=== PATIENT | female | born 1945 | race Two or more races ===

== ENCOUNTER 2017-11-07 13:40 | Inpatient (IN) | payer MEDICARE, MEDICAID ==
[~2017-11-07] VITALS: Ht 157.5 cm; Wt 63.5 kg
[2017-11-07 13:46] VITALS: BP 136/72
[2017-11-07] MEDS ORDERED: PRILOSEC OTC20 MG ORAL (13:53)
[2017-11-07] MEDS ORDERED: HYDRALAZINE HCL10 MG ORAL (13:53)
[2017-11-07] MEDS ORDERED: ASPIR 8181 MG ORAL (13:53)
[2017-11-07] MEDS ORDERED: LEVOTHYROXINE125 MCG ORAL (13:53)
[2017-11-07] MEDS ORDERED: DICLOFENAC SODI50 MG ORAL (13:53)
[2017-11-07] MEDS ORDERED: ADALAT20 MG ORAL (13:53)
[2017-11-07] MEDS ORDERED: OXYBUTYNIN CHLOR5 M2 PO (13:53)
[2017-11-07 14:31] LABS: BASOPHILS % (AUTO) 0.8 % (0.0-2.0); EOSINOPHILS % (AUTO) 0.2 % (0.0-3.0); HEMATOCRIT 41.3 % (37.0-47.0); HEMOGLOBIN 13.8 G/DL (12.0-16.0); LYMPHOCYTES % (AUTO) 18.1 % (20.0-45.0); MEAN CORPUSCULAR VOLUME 92 FL (80-99); MONOCYTES % (AUTO) 5.4 % (1.0-10.0); NEUTROPHILS % (AUTO) 75.5 % (45.0-75.0); PLATELET COUNT 247 K/UL (150-450); RED BLOOD COUNT 4.51 M/UL (4.20-5.40); RED CELL DISTRIBUTION WIDTH 10.8 % (11.6-14.8); WHITE BLOOD COUNT 10.8 K/UL (4.8-10.8)
[2017-11-07 14:32] LABS: APPEARANCE,URINE CLEAR; BILIRUBIN, URINE NEGATIVE (NEGATIVE); COLOR,URINE PALE YELLOW; GLUCOSE, URINE (UA) NEGATIVE (NEGATIVE); KETONES,URINE NEGATIVE (NEGATIVE); LEUKOCYTE ESTERASE ,URINE 3+ (NEGATIVE); NITRITE,URINE NEGATIVE (NEGATIVE); PH,URINE 7 (4.5-8.0); PROTEIN,URINE 1+ (NEGATIVE); UROBILINOGEN,URINE NORMAL MG/DL (0.0-1.0)
[2017-11-07 14:43] LABS: ANION GAP 15 mmol/L (5-15); BLOOD UREA NITROGEN 14 mg/dL (7-18); CALCIUM 9.2 MG/DL (8.5-10.1); CARBON DIOXIDE 19 MMOL/L (21-32); CHLORIDE 102 MMOL/L (98-107); POTASSIUM 3.8 MMOL/L (3.5-5.1); SODIUM 136 MMOL/L (136-145)
[2017-11-07 14:58] LABS: ALANINE AMINOTRANSFERASE 25 U/L (12-78); ALBUMIN 4.1 G/DL (3.4-5.0); ALKALINE PHOSPHATASE 74 U/L (46-116); ASPARTATE AMINO TRANSFERASE 27 U/L (15-37); BILIRUBIN,TOTAL 0.5 MG/DL (0.2-1.0); CKMB 1.3 NG/ML (0.0-3.6); CREATINE KINASE 147 U/L (26-308)
[2017-11-07 15:34] VITALS: BP 165/69
--- NOTE | 2017-11-07 16:00 | Emergency Room Report ---
History of Present Illness General Chief Complaint: General Complaint Source: Patient Present Illness HPI Patient present with complaints of left upper chest pain and shoulder pain Ongoing for the past 2 days Denies any vomiting or diarrhea patient also reports that she is taking a lot of medications for pain and high blood pressure Denies any recent travel denies any pleurisy or shortness of breath denies any back or flank pain Denies any recent trauma pain is a sharp pain at times aching Allergies: Coded Allergies: No Known Allergies (Unverified , 11/07/17) Patient History Past Medical History: see triage record Pertinent Family History: none Reviewed Nursing Documentation: PMH: Agreed; PSxH: Agreed Nursing Documentation-PMH Hx Hypertension: Yes - high cholesterol Review of Systems All Other Systems: negative except mentioned in HPI Physical Exam Vital Signs Date Time Temp Pulse Resp B/P (MAP) Pulse Ox O2 Delivery O2 Flow Rate FiO2 11/07/17 13:36 98.3 84 18 136/72 98 Room Air 98.2 Sp02 EP Interpretation: reviewed, normal General Appearance: well appearing, no apparent distress Head: normocephalic, atraumatic Eyes: bilateral eye PERRL, bilateral eye EOMI ENT: hearing grossly normal, normal pharynx, TMs + canals normal, uvula midline Neck: full range of motion, supple, no meningismus, no bony tend Respiratory: lungs clear, normal breath sounds, no rhonchi, no respiratory distress, no retraction, no accessory muscle use Cardiovascular #1: normal peripheral pulses, regular rate, rhythm, no edema, no gallop, no JVD, no murmur Gastrointestinal: normal bowel sounds, non tender, soft, no mass, no organomegaly, non-distended, no guarding, no hernia, no pulsatile mass, no rebound Genitourinary: no CVA tenderness Musculoskeletal: other - Patient does have some discomfort at the left shoulder on flexion of the left arm, eversion of the upper arm Neurologic: oriented x3, responsive, mandarin tutor III-XII nml as tested, motor strength/ tone normal, sensory intact Psychiatric: mood/affect normal Skin: normal color, no rash, warm/dry, palpation normal Lymphatic: normal inspection, no adenopathy Medical Decision Making Diagnostic Impression: Primary Impression: ACS (acute coronary syndrome) Additional Impression: Hypertensive urgency, malignant ER Course Patient is a fairly complex patient with multiple differential to consideration including but not limited to cardiac cardiopulmonary and vascular emergencies Patient's initial EKG along with blood work are at baseline levels Patient's pain has improved somewhat however given the location of the radiation there is concern for possible ACS and patient amended for further inpatient care Labs Test 11/07/17 14:00 11/07/17 14:15 11/07/17 18:40 11/08/17 06:40 White Blood Count 10.8 K/UL (4.8-10.8) 7.4 K/UL (4.8-10.8) Red Blood Count 4.51 M/UL (4.20-5.40) 4.54 M/UL (4.20-5.40) Hemoglobin 13.8 G/DL (12.0-16.0) 14.2 G/DL (12.0-16.0) Hematocrit 41.3 % (37.0-47.0) 40.8 % (37.0-47.0) Mean Corpuscular Volume 92 FL (80-99) 90 FL (80-99) Mean Corpuscular Hemoglobin 30.5 PG (27.0-31.0) 31.3 PG (27.0-31.0) Mean Corpuscular Hemoglobin Concent 33.3 G/DL (32.0-36.0) 34.9 G/DL (32.0-36.0) Red Cell Distribution Width 10.8 % (11.6-14.8) 10.7 % (11.6-14.8) Platelet Count 247 K/UL (150-450) 241 K/UL (150-450) Mean Platelet Volume 7.1 FL (6.5-10.1) 6.7 FL (6.5-10.1) Neutrophils (%) (Auto) 75.5 % (45.0-75.0) 62.3 % (45.0-75.0) Lymphocytes (%) (Auto) 18.1 % (20.0-45.0) 29.8 % (20.0-45.0) Monocytes (%) (Auto) 5.4 % (1.0-10.0) 6.7 % (1.0-10.0) Eosinophils (%) (Auto) 0.2 % (0.0-3.0) 0.6 % (0.0-3.0) Basophils (%) (Auto) 0.8 % (0.0-2.0) 0.7 % (0.0-2.0) Sodium Level 136 MMOL/L (136-145) Potassium Level 3.8 MMOL/L (3.5-5.1) Chloride Level 102 MMOL/L (98-107) Carbon Dioxide Level 19 MMOL/L (21-32) Anion Gap 15 mmol/L (5-15) Blood Urea Nitrogen 14 mg/dL (7-18) Creatinine 1.0 MG/DL (0.55-1.30) Estimat Glomerular Filtration Rate 54.8 mL/min (>60) Glucose Level 202 MG/DL (74-106) Calcium Level 9.2 MG/DL (8.5-10.1) Total Bilirubin 0.5 MG/DL (0.2-1.0) Aspartate Amino Transf (AST/SGOT) 27 U/L (15-37) Alanine Aminotransferase (ALT/SGPT) 25 U/L (12-78) Alkaline Phosphatase 74 U/L (46-116) Total Creatine Kinase 147 U/L (26-308) Creatine Kinase MB 1.3 NG/ML (0.0-3.6) Creatine Kinase MB Relative Index 0.8 Troponin I 0.000 ng/mL (0.000-0.056) 0.010 ng/mL (0.000-0.056) 0.000 ng/mL (0.000-0.056) Total Protein 8.1 G/DL (6.4-8.2) Albumin 4.1 G/DL (3.4-5.0) Globulin 4.0 g/dL Albumin/Globulin Ratio 1.0 (1.0-2.7) Thyroid Stimulating Hormone (TSH) 1.488 uiU/mL (0.358-3.740) 1.231 uiU/mL (0.358-3.740) Free Thyroxine 1.18 NG/DL (0.76-1.46) Urine Color Pale yellow Urine Appearance Clear Urine pH 7 (4.5-8.0) Urine Specific [place] 1.010 (1.005-1.035) Urine Protein 1+ (NEGATIVE) Urine Glucose (UA) Negative (NEGATIVE) Urine Ketones Negative (NEGATIVE) Urine Occult Blood 2+ (NEGATIVE) Urine Nitrite Negative (NEGATIVE) Urine Bilirubin Negative (NEGATIVE) Urine Urobilinogen Normal MG/DL (0.0-1.0) Urine Leukocyte Esterase 3+ (NEGATIVE) Urine RBC 2-4 /HPF (0 - 2) Urine WBC 5-10 /HPF (0 - 2) Urine Squamous Epithelial Cells Few /LPF (NONE/OCC) Urine Bacteria Few /HPF (NONE) Prothrombin Time 11.0 SEC (9.30-11.50) Prothromb Time International Ratio 1.0 (0.9-1.1) Activated Partial Thromboplast Time 29 SEC (23-33) C-Reactive Protein, Quantitative < 0.4 mg/dL (0.00-0.90) Triglycerides Level 73 MG/DL (30-150) Cholesterol Level 171 MG/DL (< 200) LDL Cholesterol 104 mg/dL (<100) HDL Cholesterol 67 MG/DL (40-60) Cholesterol/HDL Ratio 2.6 (3.3-4.4) EKG Diagnostic Results Rate: normal Rhythm: NSR ST Segments: no acute changes Rhythm Strip Diag. Results EP Interpretation: yes Rate: 67 Rhythm: NSR, no PVC's, no ectopy Chest X-Ray Diagnostic Results Chest X-Ray Diagnostic Results : Chest X-Ray Ordered: Yes # of Views/Limited/Complete: 1 View Indication: Chest Pain EP Interpretation: Yes Interpretation: no consolidation, no effusion, no pneumothorax Impression: No acute disease Electronically Signed by: DO Phil Joiner Vital Signs Date Time Temp Pulse Resp B/P (MAP) Pulse Ox O2 Delivery O2 Flow Rate FiO2 11/07/17 15:34 98.2 83 17 165/69 98 Room Air 98.2 Status: improved Disposition: ADMITTED INPATIENT Condition: Serious Referrals: NON PHYSICIAN (PCP) Treasure Mcclure DO Nov 07, 2017 16:00
[2017-11-07 16:32] VITALS: BP 147/69
[2017-11-07] MEDS ORDERED: dilTIAZem HCl 25mg/5ml Inj IV PRN (18:00)
[2017-11-07] MEDS ORDERED: Miralax 17gm pkt ORAL PRN (18:00)
[2017-11-07] MEDS ORDERED: Nitroglycerin Subl 0.4mg tab SL PRN (18:00)
[2017-11-07] MEDS ORDERED: Labetalol 5mg/ml 20ml vial IV PRN (18:00)
[2017-11-07] MEDS ORDERED: Albuterol/Ipratropium 3ml neb HHN PRN (18:00)
[2017-11-07] MEDS: Heparin 5000 units/ml inj SUBQ SCH (20:52)
[2017-11-08 07:28] LABS: BASOPHILS % (AUTO) 0.7 % (0.0-2.0); EOSINOPHILS % (AUTO) 0.6 % (0.0-3.0); HEMATOCRIT 40.8 % (37.0-47.0); HEMOGLOBIN 14.2 G/DL (12.0-16.0); LYMPHOCYTES % (AUTO) 29.8 % (20.0-45.0); MEAN CORPUSCULAR VOLUME 90 FL (80-99); MONOCYTES % (AUTO) 6.7 % (1.0-10.0); NEUTROPHILS % (AUTO) 62.3 % (45.0-75.0); PLATELET COUNT 241 K/UL (150-450); RED BLOOD COUNT 4.54 M/UL (4.20-5.40); RED CELL DISTRIBUTION WIDTH 10.7 % (11.6-14.8); WHITE BLOOD COUNT 7.4 K/UL (4.8-10.8)
[2017-11-08 07:32] LABS: CHOLESTEROL 171 MG/DL (< 200); HDL CHOLESTEROL 67 MG/DL (40-60); TRIGLYCERIDES 73 MG/DL (30-150)
[2017-11-08 08:00] VITALS: BP 125/63
[2017-11-08] MEDS: Heparin 5000 units/ml inj SUBQ SCH ×2 (09:31→20:15)
[2017-11-08 12:00] VITALS: BP 150/70
--- NOTE | 2017-11-08 12:09 | Consultation ---
History of Present Illness General Date patient seen: Nov 08, 2017 Chief Complaint: General Complaint Present Illness HPI 72 year old female with hx of HTN, was brought in by paramedics because of dizziness and anxiety, Apparently she tool her morning BP meds twice and got anxious. then she had dry mouth and dizzy and called the paramedics. She is admitted to telemetry. Her major concern is her Left shoulder pain. Allergies: Coded Allergies: No Known Allergies (Unverified , 11/07/17) Medication History Scheduled Aspirin* (Aspir 81*), 81 MG ORAL DAILY, (Reported) Diclofenac Sod* (Voltaren*), 50 MG ORAL THREE TIMES A DAY, (Reported) Hydralazine Hcl* (Hydralazine Hcl*), 10 MG ORAL EVERY 8 HOURS, (Reported) Levothyroxine Sodium* (Levothyroxine Sodium*), 250 MCG ORAL DAILY, (Reported) Nifedipine (Nifedipine*), 60 MG ORAL DAILY, (Reported) Omeprazole Magnesium (Prilosec Otc), 40 MG ORAL DAILY, (Reported) Oxybutynin Chloride (Oxybutynin Chloride Er), 5 MG PO DAILY, (Reported) Patient History Healthcare decision maker Resuscitation status Full Code Advanced Directive on File Past Medical/Surgical History Past Medical/Surgical History: (1) Hypertension Review of Systems All Other Systems: negative except mentioned in HPI Physical Exam General Appearance: WD/WN, no apparent distress Lines, tubes and drains: peripheral, central line, endotracheal tube HEENT: normocephalic, atraumatic Neck: non-tender, supple Respiratory/Chest: chest wall non-tender, normal breath sounds Cardiovascular/Chest: normal peripheral pulses, normal rate Last 24 Hour Vital Signs Date Time Temp Pulse Resp B/P (MAP) Pulse Ox O2 Delivery O2 Flow Rate FiO2 11/08/17 09:00 Room Air 11/08/17 08:00 68 11/08/17 08:00 97.8 70 18 125/63 (83) 96 97.8 11/08/17 04:00 59 11/07/17 21:00 Room Air 11/07/17 20:00 68 11/07/17 16:50 Room Air 11/07/17 16:45 98.2 92 22 147/69 98 Room Air 98.2 11/07/17 16:32 98.2 92 22 147/69 98 Room Air 98.2 11/07/17 15:34 98.2 83 17 165/69 98 Room Air 98.2 11/07/17 13:46 98.2 100 18 136/72 98 Room Air 98.2 11/07/17 13:36 98.3 84 18 136/72 98 Room Air 98.2 Intake and Output 11/07/17 11/08/17 19:00 07:00 Intake Total 250 ml Output Total 0 ml Balance 0 ml 250 ml Intake Oral 250 ml Output Urine Total 0 ml # Voids 2 3 Laboratory Tests Test 11/07/17 14:00 11/07/17 14:15 11/07/17 18:40 11/08/17 06:40 White Blood Count 10.8 K/UL (4.8-10.8) 7.4 K/UL (4.8-10.8) Red Blood Count 4.51 M/UL (4.20-5.40) 4.54 M/UL (4.20-5.40) Hemoglobin 13.8 G/DL (12.0-16.0) 14.2 G/DL (12.0-16.0) Hematocrit 41.3 % (37.0-47.0) 40.8 % (37.0-47.0) Mean Corpuscular Volume 92 FL (80-99) 90 FL (80-99) Mean Corpuscular Hemoglobin 30.5 PG (27.0-31.0) 31.3 PG (27.0-31.0) H Mean Corpuscular Hemoglobin Concent 33.3 G/DL (32.0-36.0) 34.9 G/DL (32.0-36.0) Red Cell Distribution Width 10.8 % (11.6-14.8) L 10.7 % (11.6-14.8) L Platelet Count 247 K/UL (150-450) 241 K/UL (150-450) Mean Platelet Volume 7.1 FL (6.5-10.1) 6.7 FL (6.5-10.1) Neutrophils (%) (Auto) 75.5 % (45.0-75.0) H 62.3 % (45.0-75.0) Lymphocytes (%) (Auto) 18.1 % (20.0-45.0) L 29.8 % (20.0-45.0) Monocytes (%) (Auto) 5.4 % (1.0-10.0) 6.7 % (1.0-10.0) Eosinophils (%) (Auto) 0.2 % (0.0-3.0) 0.6 % (0.0-3.0) Basophils (%) (Auto) 0.8 % (0.0-2.0) 0.7 % (0.0-2.0) Sodium Level 136 MMOL/L (136-145) Potassium Level 3.8 MMOL/L (3.5-5.1) Chloride Level 102 MMOL/L (98-107) Carbon Dioxide Level 19 MMOL/L (21-32) L Anion Gap 15 mmol/L (5-15) Blood Urea Nitrogen 14 mg/dL (7-18) Creatinine 1.0 MG/DL (0.55-1.30) Estimat Glomerular Filtration Rate 54.8 mL/min (>60) Glucose Level 202 MG/DL (74-106) H Calcium Level 9.2 MG/DL (8.5-10.1) Total Bilirubin 0.5 MG/DL (0.2-1.0) Aspartate Amino Transf (AST/SGOT) 27 U/L (15-37) Alanine Aminotransferase (ALT/SGPT) 25 U/L (12-78) Alkaline Phosphatase 74 U/L (46-116) Total Creatine Kinase 147 U/L (26-308) Creatine Kinase MB 1.3 NG/ML (0.0-3.6) Creatine Kinase MB Relative Index 0.8 Troponin I 0.000 ng/mL (0.000-0.056) 0.010 ng/mL (0.000-0.056) 0.000 ng/mL (0.000-0.056) Total Protein 8.1 G/DL (6.4-8.2) Albumin 4.1 G/DL (3.4-5.0) Globulin 4.0 g/dL Albumin/Globulin Ratio 1.0 (1.0-2.7) Thyroid Stimulating Hormone (TSH) 1.488 uiU/mL (0.358-3.740) 1.231 uiU/mL (0.358-3.740) Free Thyroxine 1.18 NG/DL (0.76-1.46) Urine Color Pale yellow Urine Appearance Clear Urine pH 7 (4.5-8.0) Urine Specific [place] 1.010 (1.005-1.035) Urine Protein 1+ (NEGATIVE) H Urine Glucose (UA) Negative (NEGATIVE) Urine Ketones Negative (NEGATIVE) Urine Occult Blood 2+ (NEGATIVE) H Urine Nitrite Negative (NEGATIVE) Urine Bilirubin Negative (NEGATIVE) Urine Urobilinogen Normal MG/DL (0.0-1.0) Urine Leukocyte Esterase 3+ (NEGATIVE) H Urine RBC 2-4 /HPF (0 - 2) H Urine WBC 5-10 /HPF (0 - 2) H Urine Squamous Epithelial Cells Few /LPF (NONE/OCC) Urine Bacteria Few /HPF (NONE) Prothrombin Time 11.0 SEC (9.30-11.50) Prothromb Time International Ratio 1.0 (0.9-1.1) Activated Partial Thromboplast Time 29 SEC (23-33) C-Reactive Protein, Quantitative < 0.4 mg/dL (0.00-0.90) Triglycerides Level 73 MG/DL (30-150) Cholesterol Level 171 MG/DL (< 200) LDL Cholesterol 104 mg/dL (<100) H HDL Cholesterol 67 MG/DL (40-60) H Cholesterol/HDL Ratio 2.6 (3.3-4.4) L Height (Feet): 5 Height (Inches): 2.00 Weight (Pounds): 140 Medications Current Medications Medications (Trade) Dose Ordered Sig/Lesly Route PRN Reason Start Time Stop Time Status Last Admin Dose Admin Acetaminophen (Tylenol) 650 mg Q4H PRN ORAL FEVER 11/07/17 18:00 12/07/17 17:59 11/08/17 09:29 Albuterol/ Ipratropium (Albuterol/ Ipratropium) 3 ml Q4H PRN HHN Shortness of Breath 11/07/17 18:00 11/12/17 17:59 Diltiazem HCl (Cardizem) 10 mg Q1H PRN IV heart rate more than 120 11/07/17 18:00 12/07/17 17:59 Enalaprilat (Vasotec) 2.5 mg Q6H PRN IV sbp more than 160 11/07/17 18:00 12/07/17 17:59 Heparin Sodium (Porcine) (Heparin 5000 units/ml) 5,000 units EVERY 12 HOURS SUBQ 11/07/17 21:00 12/07/17 20:59 11/08/17 09:31 Labetalol HCl (Normodyne) 20 mg Q1H PRN IV sbp more than 160 11/07/17 18:00 12/07/17 17:59 Nitroglycerin (Ntg) 0.4 mg Q5M PRN SL Prn Chest Pain 11/07/17 18:00 12/07/17 17:59 Ondansetron HCl (Zofran) 4 mg Q6H PRN IVP Nausea & Vomiting 11/07/17 18:00 12/07/17 17:59 Pantoprazole (Protonix) 40 mg DAILY ORAL 11/08/17 09:00 12/08/17 08:59 11/08/17 10:20 Polyethylene Glycol (Miralax) 17 gm DAILYPRN PRN ORAL Constipation 11/07/17 18:00 12/07/17 17:59 Temazepam (Restoril) 15 mg HSPRN PRN ORAL Insomnia 11/07/17 21:00 11/14/17 20:59 Assessment/Plan Problem List: (1) Dizziness ICD Codes: R42 - Dizziness and giddiness SNOMED: 731875746, 111189367 (2) Shoulder pain ICD Codes: M25.519 - Pain in unspecified shoulder SNOMED: 39165312 (3) Hypertension ICD Codes: I10 - Essential (primary) hypertension SNOMED: 49252590 (4) Noncompliance ICD Codes: Z91.19 - Patient's noncompliance with other medical treatment and regimen SNOMED: 3094722 Assessment/Plan monitor in telemetry echo ortho evaluation symptomatic evaluation doppler of carotid artery dvt prophylaxis. Dolores Monson MD Nov 08, 2017 12:09
--- NOTE | 2017-11-08 12:56 | Diagnostic Imaging Report ---
Indication: Pain Technique: XRAY Shoulder Compl L Comparison: None Findings: No evidence of acute fracture or dislocation. Imaged portions of the left lung clear. No radiopaque foreign body identified. Impression: No acute fracture or dislocation. Consider MRI of the left shoulder on a nonemergent basis as clinically indicated if there is continued shoulder pain.
--- NOTE | 2017-11-08 13:43 | Diagnostic Imaging Report ---
Indication: Chest pain Technique: XRAY Chest 1v Comparison: None Findings: Cardiac leads overlie the chest. Heart size and mediastinal contours are within normal limits given technique. There is no focal consolidation, pneumothorax or pleural effusion. Degenerative change of the spine. Osseous structures demonstrate no acute abnormality. Impression: No radiographic evidence of acute cardiopulmonary disease.
[2017-11-08 16:00] VITALS: BP_SYST 128; BP_SYST 150; BP_DIAS 61; BP_DIAS 70
[2017-11-08 20:00] VITALS: BP 170/77
--- NOTE | 2017-11-08 20:57 | Cardiology Report ---
APPROVED REPORT EXAM: Two-dimensional and M-mode echocardiogram with Doppler and color Doppler. INDICATION LV FUNCTION M-Mode DIMENSIONS IVSd1.2 (0.7-1.1cm)Left Atrium (MM)3.1 (1.6-4.0cm) LVDd5.4 (3.5-5.6cm)Aortic Root2.3 (2.0-3.7cm) PWd1.3 (0.7-1.1cm)Aortic Cusp Exc.1.7 (1.5-2.0cm) IVSs1.7 cm LVDs3.4 (2.5-4.0cm) PWs1.2 cm Technically difficult study due to poor acoustical windows. Normal left ventricular chamber size, systolic function and wall motion to extent visualized. Left ventricular ejection fraction estimated to be 55-60 %. No evidence of left ventricular hypertrophy . No evidence of pericardial effusion. All other cardiac chamber sizes are within normal limits. Focal aortic valve sclerosis with adequate cusp excursion. Thickened mitral valve leaflets with normal excursion. Mitral annulus and aortic root calcification. Pulmonic valve not well visualized. Normal tricuspid valve structure. IVC at normal size with physiologic collapse . A color flow and spectral Doppler study was performed and revealed: Mild aortic regurgitation. Trace mitral regurgitation. Mitral diastolic velocities suggest reduced left ventricular relaxation c/w mild LV diastolic dysfunction (Grade I ). Mild tricuspid regurgitation. Tricuspid systolic velocities suggests peak right ventricular systolic pressure of 34mmH. No Pulmonic regurgitation present.
[2017-11-08] MEDS: Enalaprilat 2.5mg/2ml Inj IV PRN (21:08)
--- NOTE | 2017-11-08 22:30 | History and Physical Report ---
DATE OF ADMISSION: 11/07/2017 CONSULTANTS: 1. Dr. Costa. 2. Dolores Monson M.D. 3. Parveen Galvan M.D. CHIEF COMPLAINT: Headache, hypertensive urgency, and left shoulder pain. BRIEF HISTORY: The patient is a 72-year-old female, who lives at home, presents with headache, slight weakness, also left shoulder pain, sent to [facility], diagnosed with hypertensive urgency, admitted to telemetry for further care. Currently calm in bed. No complaint. PAST MEDICAL HISTORY: Hypertension. PAST SURGICAL HISTORY: None. MEDICATIONS: Protonix, Restoril, heparin, albuterol, , MiraLAX, Zofran, Vasotec, Cardizem, and Normodyne. ALLERGIES: Denies. SOCIAL HISTORY: No smoking. No alcohol. No intravenous drug abuse. REVIEW OF SYSTEMS: No chest pain. Slight short of breath. Slight nausea. No vomiting or diarrhea. PHYSICAL EXAMINATION: GENERAL: Calm in bed, oriented x3, no acute distress. VITAL SIGNS: Temperature is 97 degrees, pulse 70, respiratory rate 16, and blood pressure now is 123/63. CARDIOVASCULAR: No murmur. LUNGS: Distant and clear. ABDOMEN: Bowel sounds positive. Nontender. Nondistended. EXTREMITIES: No cyanosis or edema. NEUROLOGIC: The patient moves all extremities, slightly weak. LABORATORY AND DIAGNOSTIC DATA: CBC is normal. BMP actually shows troponin 0.00, 0.01 and 0.00. Cholesterol, LDL 104, and HDL 67, and total is 73. INR is 1.0 and PTT is 29. Urinalysis shows 3+ leukocyte esterase. ASSESSMENT: 1. Headache. 2. Hypertensive urgency. 3. Urinary tract infection. 4. Left shoulder pain. PLAN: 1. Continue previous medications. 2. Blood pressure control. 3. Antibiotics per Infectious Disease. 4. Pain control. 5. Orthopedic and cardiac followup. 6. The patient per insurance will be transferred shortly to assigned hospital. Niranjan Jama D.O. DR: NUBIA JOB#: [id number] CC:
[2017-11-09] VITALS: BP 123/74
[2017-11-09 04:00] VITALS: BP 170/72
[2017-11-09] MEDS: Enalaprilat 2.5mg/2ml Inj IV PRN (04:38)
[2017-11-09 08:00] VITALS: BP 155/75
[2017-11-09] MEDS ORDERED: HydrALAZINE 10mg Tab ORAL SCH (09:00)
[2017-11-09] MEDS: Heparin 5000 units/ml inj SUBQ SCH (09:54)
--- NOTE | 2017-11-09 11:03 | Pulmonology Progress Note ---
Assessment/Plan Problems: (1) Dizziness (2) Shoulder pain (3) Hypertension (4) Noncompliance Assessment/Plan BP better controlled xr of left shoulder not helpful MRI of Cspine and shoulder ordered symptomatic treatment might go home after the MRI Subjective ROS Limited/Unobtainable: No Interval Events: c/o neck and left shoulder pain Allergies: Coded Allergies: No Known Allergies (Unverified , 11/07/17) Objective Last 24 Hour Vital Signs Date Time Temp Pulse Resp B/P (MAP) Pulse Ox O2 Delivery O2 Flow Rate FiO2 11/09/17 09:55 155/75 11/09/17 09:51 52 155/75 11/09/17 08:00 97.5 52 18 155/75 (101) 98 97.5 11/09/17 04:38 170/72 11/09/17 04:00 55 11/09/17 04:00 98.0 61 16 170/72 (104) 98 98.0 11/09/17 00:00 97.9 64 16 123/74 (90) 96 97.9 11/09/17 00:00 60 11/08/17 21:08 170/77 11/08/17 21:00 Room Air 11/08/17 20:00 61 11/08/17 20:00 97.9 59 19 170/77 (108) 98 97.9 11/08/17 16:00 97.9 64 18 128/61 (83) 96 97.9 11/08/17 16:00 60 11/08/17 12:00 61 11/08/17 12:00 97.9 51 18 150/70 (96) 95 97.9 Intake and Output 11/08/17 11/09/17 19:00 07:00 Intake Total 360 ml 480 ml Balance 360 ml 480 ml Intake Oral 360 ml 480 ml # Voids 3 3 General Appearance: WD/WN HEENT: normocephalic, atraumatic Respiratory/Chest: chest wall non-tender, lungs clear Breasts: no masses Cardiovascular: normal peripheral pulses, normal rate Abdomen: normal bowel sounds, soft, non tender Extremities: no clubbing Neurologic/Psychiatric: mirror installer II-XII grossly normal Current Medications Medications (Trade) Dose Ordered Sig/Lesly Route PRN Reason Start Time Stop Time Status Last Admin Dose Admin Acetaminophen (Tylenol) 650 mg Q4H PRN ORAL FEVER 11/07/17 18:00 12/07/17 17:59 11/09/17 04:43 Albuterol/ Ipratropium (Albuterol/ Ipratropium) 3 ml Q4H PRN HHN Shortness of Breath 11/07/17 18:00 11/12/17 17:59 Diltiazem HCl (Cardizem) 10 mg Q1H PRN IV heart rate more than 120 11/07/17 18:00 12/07/17 17:59 Enalaprilat (Vasotec) 2.5 mg Q6H PRN IV sbp more than 160 11/07/17 18:00 12/07/17 17:59 11/09/17 04:38 Heparin Sodium (Porcine) (Heparin 5000 units/ml) 5,000 units EVERY 12 HOURS SUBQ 11/07/17 21:00 12/07/17 20:59 11/09/17 09:54 Hydralazine HCl (Apresoline) 10 mg DAILY ORAL 11/09/17 09:00 12/09/17 08:59 11/09/17 09:55 Labetalol HCl (Normodyne) 20 mg Q1H PRN IV sbp more than 160 11/07/17 18:00 12/07/17 17:59 Nifedipine (Procardia XL) 60 mg DAILY ORAL 11/09/17 09:00 12/09/17 08:59 11/09/17 09:51 Nitroglycerin (Ntg) 0.4 mg Q5M PRN SL Prn Chest Pain 11/07/17 18:00 12/07/17 17:59 Ondansetron HCl (Zofran) 4 mg Q6H PRN IVP Nausea & Vomiting 11/07/17 18:00 12/07/17 17:59 Pantoprazole (Protonix) 40 mg DAILY ORAL 11/08/17 09:00 12/08/17 08:59 11/09/17 09:51 Polyethylene Glycol (Miralax) 17 gm DAILYPRN PRN ORAL Constipation 11/07/17 18:00 12/07/17 17:59 Temazepam (Restoril) 15 mg HSPRN PRN ORAL Insomnia 11/07/17 21:00 11/14/17 20:59 Dolores Monson MD Nov 09, 2017 11:03
[2017-11-09 12:00] VITALS: BP 166/67
--- NOTE | 2017-11-09 14:14 | Diagnostic Imaging Report ---
Indication: 72-year-old female inpatient with pain in the neck and left shoulder and arm Technique: Sagittal T1 FLAIR PROPELLER, sagittal T2 PROPELLOR, sagittal STIR, axial T2 PROPELLER, axial 3D COSMIC ASPIR images were obtained through the cervical spine Comparison: none Findings: Exam is limited by motion. In particular, the axial T2-weighted images demonstrate severe motion artifact despite repeat acquisitions. This in particular limits evaluation of spinal cord signal. The bony alignment is normal. Vertebral body heights are preserved. The vertebral body marrow signal is normal. The intrinsic cord signal is probably normal although not well demonstrated as mentioned above There is what appears to be a degenerative subchondral cyst within the tip of the odontoid. There is some thickening of the posterior atlantoaxial ligament. At C3-4, there is mild degenerative disc narrowing. There is circumferential annular bulge which results in moderate spinal stenosis. There is probably moderate bilateral neural foraminal stenosis. At C4-5, there is mild degenerative disc narrowing. There is broad-based posterior disc protrusion which results in moderate spinal stenosis and slight impingement on the anterior aspect of the cord. There is moderate right and severe left neural foraminal stenosis at this level. At C5-6, there is mild degenerative disc narrowing. There is very mild circumferential annular bulge resulting in borderline narrowing of the spinal canal, no significant cord impingement. Severe left and mild to moderate right neural foraminal stenosis at this level. At C6-7, there is minimal circumferential annular bulge which does not significantly narrow the spinal canal. There is mild to moderate bilateral neural foraminal stenosis at this level. At the remaining levels, no significant disc bulge or protrusion, spinal stenosis or neural foraminal stenosis. The included extra spinal soft tissues are unremarkable. Impression: To limit exam, due to motion artifact Moderate spinal stenosis at C3-4 and C4-5, predominantly due to disc bulges at this these levels Multilevel neural foraminal stenoses, some severe, as detailed on a level by level basis above Other degenerative changes, as detailed above
[2017-11-09 16:00] VITALS: BP 148/54
[2017-11-09] MEDS ORDERED: Lisinopril 20mg tab ORAL SCH (16:30)
--- NOTE | 2017-11-09 16:31 | Consultation ---
History of Present Illness General Date patient seen: Nov 09, 2017 Time patient seen: 16:18 Chief Complaint: General Complaint Present Illness HPI 72 year old female, c/o Left chest and shoulder pain 3/10, precordial , pressure/sharp. She is SR on monitor at 60s, HR regular. She also has some anxiety and she took 2 pain pills and 2 blood pressure medication and started panicking because of the doubled dose. Troponin negative x3, blood pressure elevated. Echocardiogram Left ventricular ejection fraction estimated to be 55- 60 %. CT spine Moderate spinal stenosis at C3-4 and C4-5, predominantly due to disc bulges at this these levels Allergies: Coded Allergies: No Known Allergies (Unverified , 11/07/17) Medication History Scheduled Aspirin* (Aspir 81*), 81 MG ORAL DAILY, (Reported) Diclofenac Sod* (Voltaren*), 50 MG ORAL THREE TIMES A DAY, (Reported) Hydralazine Hcl* (Hydralazine Hcl*), 10 MG ORAL EVERY 8 HOURS, (Reported) Levothyroxine Sodium* (Levothyroxine Sodium*), 250 MCG ORAL DAILY, (Reported) Nifedipine (Nifedipine*), 60 MG ORAL DAILY, (Reported) Omeprazole Magnesium (Prilosec Otc), 40 MG ORAL DAILY, (Reported) Oxybutynin Chloride (Oxybutynin Chloride Er), 5 MG PO DAILY, (Reported) Patient History Healthcare decision maker Resuscitation status Full Code Advanced Directive on File Review of Systems Constitutional: Reports: no symptoms Eye: Reports: no symptoms ENT: Reports: no symptoms Respiratory: Reports: no symptoms Cardiovascular: Reports: chest pain Gastrointestinal: Reports: no symptoms Genitourinary: Reports: no symptoms Musculoskeletal: Reports: joint pain, joint swelling Skin: Reports: no symptoms Neurological: Reports: no symptoms Endocrine: Reports: no symptoms Hematologic/Lymphatic: Reports: no symptoms Physical Exam General Appearance: no apparent distress Lines, tubes and drains: peripheral HEENT: normocephalic, atraumatic Neck: non-tender, normal alignment Respiratory/Chest: chest wall non-tender, lungs clear Cardiovascular/Chest: normal peripheral pulses Abdomen: normal bowel sounds, non tender Extremities: normal range of motion, non-pitting Skin Exam: normal pigmentation 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 Last 24 Hour Vital Signs Date Time Temp Pulse Resp B/P (MAP) Pulse Ox O2 Delivery O2 Flow Rate FiO2 11/09/17 14:39 67 16 Room Air 21 11/09/17 12:00 98.1 53 18 166/67 (100) 98 98.1 11/09/17 12:00 55 11/09/17 09:55 155/75 11/09/17 09:51 52 155/75 11/09/17 09:00 Room Air 11/09/17 08:00 97.5 52 18 155/75 (101) 98 97.5 11/09/17 08:00 53 11/09/17 04:38 170/72 11/09/17 04:00 55 11/09/17 04:00 98.0 61 16 170/72 (104) 98 98.0 11/09/17 00:00 97.9 64 16 123/74 (90) 96 97.9 11/09/17 00:00 60 11/08/17 21:08 170/77 11/08/17 21:00 Room Air 11/08/17 20:00 61 11/08/17 20:00 97.9 59 19 170/77 (108) 98 97.9 Intake and Output 11/08/17 11/09/17 19:00 07:00 Intake Total 360 ml 480 ml Balance 360 ml 480 ml Intake Oral 360 ml 480 ml # Voids 3 3 Height (Feet): 5 Height (Inches): 2.00 Weight (Pounds): 140 Medications Current Medications Medications (Trade) Dose Ordered Sig/Lesly Route PRN Reason Start Time Stop Time Status Last Admin Dose Admin Acetaminophen (Tylenol) 650 mg Q4H PRN ORAL FEVER 11/07/17 18:00 12/07/17 17:59 11/09/17 04:43 Albuterol/ Ipratropium (Albuterol/ Ipratropium) 3 ml Q4H PRN HHN Shortness of Breath 11/07/17 18:00 11/12/17 17:59 Diltiazem HCl (Cardizem) 10 mg Q1H PRN IV heart rate more than 120 11/07/17 18:00 12/07/17 17:59 Enalaprilat (Vasotec) 2.5 mg Q6H PRN IV sbp more than 160 11/07/17 18:00 12/07/17 17:59 11/09/17 04:38 Heparin Sodium (Porcine) (Heparin 5000 units/ml) 5,000 units EVERY 12 HOURS SUBQ 11/07/17 21:00 12/07/17 20:59 11/09/17 09:54 Hydralazine HCl (Apresoline) 10 mg DAILY ORAL 11/09/17 09:00 12/09/17 08:59 11/09/17 09:55 Labetalol HCl (Normodyne) 20 mg Q1H PRN IV sbp more than 160 11/07/17 18:00 12/07/17 17:59 Nifedipine (Procardia XL) 60 mg DAILY ORAL 11/09/17 09:00 12/09/17 08:59 11/09/17 09:51 Nitroglycerin (Ntg) 0.4 mg Q5M PRN SL Prn Chest Pain 11/07/17 18:00 12/07/17 17:59 Ondansetron HCl (Zofran) 4 mg Q6H PRN IVP Nausea & Vomiting 11/07/17 18:00 12/07/17 17:59 Pantoprazole (Protonix) 40 mg DAILY ORAL 11/08/17 09:00 12/08/17 08:59 11/09/17 09:51 Polyethylene Glycol (Miralax) 17 gm DAILYPRN PRN ORAL Constipation 11/07/17 18:00 12/07/17 17:59 Temazepam (Restoril) 15 mg HSPRN PRN ORAL Insomnia 11/07/17 21:00 11/14/17 20:59 Assessment/Plan Status: stable Assessment/Plan Assessment (1) Dizziness (2) Shoulder pain (3) Hypertension (4) Noncompliance (5) Chest pain (6) Shoulder pain Plan ACS ruled out , no cath needed, low pre test probability Outpatient stress test daily aspirin BP control with hydralazine and procardia, would change hydralazine to lisinopril 20 mg MRi shoulder ok to discharge Justo Patricio M.D. Nov 09, 2017 16:31
[2017-11-09 16:47] VITALS: BP 160/74
--- NOTE | 2017-11-10 08:29 | Discharge Summary ---
Discharge Summary Discharge Summary _ DATE OF ADMISSION: 11/07/2017 DATE OF DISCHARGE: 11/09/2017 REASON FOR ADMISSION: 72 years old female with past medical history of hypertension and anxiety, presented to emergency department with complaints of left upper chest pain and left shoulder pain for the past few days. Pain was ongoing and sharp, at times aching. Admitted to dizziness, nio blackouts, no loss of consciousness. No shortness of breath. No nausea , diarrhea or vomiting No back or flank pain No recent trauma/injury to chest wall. Upon evaluation severely elevated blood pressure which was addressed i emergency department with some improvement. Laboratory workup revealed no leukocytosis, stable hemoglobin and hematocrit. Troponin negative. EKG revealed normal sinus rhythm, no acute ischemic changes . Chest x-ray revealed no acute cardiopulmonary pathology. Stable electrolytes and renal parameters. Patient admitted with diagnoses of chest pain, rule out acute coronary syndrome , hypertensive urgency, left shoulder pain CONSULTANTS: hse manager Dr. Patricio pulmonary Dr. Monson [facility] COURSE: Patient admitted to telemetry floor. Cardiology and pulmonology consults were requested. Serial troponin were negative. EKG revealed no acute ischemic changes. Patient was ruled out for acute NH. Echocardiogram revealed preserved ejection fraction 55-60%, no evidence of left ventricular hypertrophy. Normal left ventricular chamber size, systolic function and wall motion. Right ventricular systolic pressure of 34. Blood pressure was managed with hydralazine and Procardia. Crucible Furnace Tender recommended to change hydralazine to lisinopril. Lipid panel revealed LDL of 104, otherwise stable total cholesterol and triglycerides. Patient was educated on low-fat low-cholesterol l cardiac diet. Per hse manager no catheterization was needed at this time. Patient had a low pretest probability. Crucible Furnace Tender recommended outpatient stress test. Patient started on daily aspirin. Carotid duplex revealed mild degree of stenosis of internal carotid artery bilaterally. DVT and GI prophylaxis provided. X-ray of the left shoulder revealed no evidence of acute fracture or dislocation. Pain management was addressed, and pain was controlled. Consider MRI of the left shoulder , which could be done as outpatient. MRI of the cervical spine revealed moderate spinal stenosis. Patient clinically improved, blood pressure stabilized, no further chest pain . Patient was stable for discharge home. FINAL DIAGNOSES: Hypertensive urgency Chest pain, acute coronary syndrome was ruled out Noncompliance Left shoulder pain Dizziness DISCHARGE MEDICATIONS: See Medication Reconciliation list. DISCHARGE INSTRUCTIONS: Patient was discharged home. Outpatient follow-up with the primary care provider next week I have been assigned to dictate discharge summary for this account. I was not involved in the patient's management. Stephanie Willis NP Nov 10, 2017 08:29
--- NOTE | 2017-11-10 10:48 | Diagnostic Imaging Report ---
EXAM: MR left shoulder INDICATION: Left shoulder pain. COMPARISON: No shoulder radiographs from 11/08/17 TECHNIQUE: Multiplanar, multiecho imaging is performed of the sides shoulder without IV contrast. Total number of images received: 154 FINDINGS: Tendons: Supraspinatus is completely torn with 1 cm gap best seen on series 9, image 7. Mild infraspinatus and subscapularis tendinosis. Long head of biceps and teres minor tendons are intact.. Labrum: grossly intact. Cartilage: articular cartilages are within normal limits. AC joint: mild hypertrophic arthropathy. The acromion appears slightly subluxed from clavicle by about 4 mm, best seen on series 7 image 10 and 11. Bones: within normal limits. Intra- and extra- articular fluid: Minimal fluid in subacromial bursa Muscles: within normal limits. Vessels: within normal limits. Nerves: within normal limits. IMPRESSION: Supraspinatus is completely torn with 1 cm gap Mild infraspinatus and subscapularis tendinosis.
--- NOTE | 2017-11-10 15:45 | Cardiology Report ---
APPROVED REPORT EKG Measurement Heart [id number] 140P-14 [id number] Sinus bradycardia with sinus arrhythmia Otherwise normal ECG
== END 2017-11-09 17:27 | disposition home or self-care (01) | DRG 305 ==
LOC: EDBD 13:40 → EMR 14:00 → 2E 15:12 → EDBEDREQ 15:49
DX: I16.0 Hypertensive urgency (principal); N39.0 Urinary tract infection, site not specified; R07.9 Chest pain, unspecified; Z91.19 Patient's noncompliance with other medical treatment and regimen; M25.512 Pain in left shoulder; M48.02 Spinal stenosis, cervical region
CPT/HCPCS: 36415; 71045; 72141; 80053; 80061; 81003; 82550; 82553; 84439; 84443; 84484; 85025; 85610; 85730; 86140; 93005; 93306; 93880; 94664